=== PATIENT | female | born 1955 | race Caucasian/White ===

== ENCOUNTER 2016-12-10 09:13 | Day surgery (SDC) | payer BC ==
--- NOTE | ~2016-12-10 | EGD ---
EGD REPORT [facility] [address] [address] NAME: MAKAYLA MONTENEGRO : 57 STATUS : REG [facility]#: [id number] AGE: 61 ADM/REG DATE : 12/10/16 MR#: [id number] REPORT SERV DATE: 12/10/16 DICTATED BY: SUNDAY VELÁSQUEZ DATE: 12/10/16 REPORT STATUS : Draft [facility]: [facility] DATE: 12/10/16 Endoscopy Center Patient Name: Makayla Montenegro Date of : 1955 Attending MD: SUNDAY VELÁSQUEZ MD Procedure Date No Time: 12/10/2016 Procedure: Colonoscopy Indications: Colon cancer screening in patient at increased risk: Family history of colon polyps Referring MD: LEILA WOODWARD MD Medicines: as per anesthesia Complications: No immediate complications. Procedure: Pre-Anesthesia Assessment: - ASA Grade Assessment: II - A patient with mild systemic disease. After I obtained informed consent, the scope was passed under direct vision. Throughout the procedure, the patient's blood pressure, pulse, and oxygen saturations were monitored continuously. The [facility] [id number] was introduced through the anus and advanced to the cecum, identified by appendiceal orifice and ileocecal valve. The colonoscopy was performed without difficulty. The patient tolerated the procedure. The quality of the bowel preparation was adequate to identify polyps. Findings: The perianal and digital rectal examinations were normal. Multiple small and large-mouthed diverticula were found in the sigmoid colon, in the descending colon, in the transverse colon and in the ascending colon. Internal hemorrhoids were found during endoscopy and were mild. Impression: - Diverticulosis in the sigmoid colon, in the descending colon, in the transverse colon and in the ascending colon. - Internal hemorrhoids. Recommendation: - Repeat colonoscopy in 5 years for surveillance. Procedure Code(s): --- Professional --- 02283, Colonoscopy, flexible, proximal to splenic flexure; diagnostic, with or without collection of specimen(s) by brushing or washing, with or without colon decompression (separate procedure) EGD REPORT [facility] [address] [place] [address] NAME: MAKAYLA MONTENEGRO : 57 STATUS : REG [facility] PAT#: [id number] AGE: 61 ADM/REG DATE : 12/10/16 MR#: [id number] REPORT SERV DATE: 12/10/16 DICTATED BY: SUNDAY VELÁSQUEZ. DATE: 12/10/16 REPORT STATUS : Draft TRANSCRIBED BY: [employer] DATE: 12/10/16 Diagnosis Code(s): --- Professional --- K64.8, Other hemorrhoids K57.30, Diverticulosis of large intestine without perforation or abscess without bleeding Z12.11, Encounter for screening for malignant neoplasm of colon Z83.71, Family history of colonic polyps CPT copyright 2013 [employer]. All rights reserved. The codes documented in this report are preliminary and upon sales solutions associate review may be revised to meet current compliance requirements. SUNDAY VELÁSQUEZ MD 12/10/2016 10:32 AM This report has been signed electronically. Number of Addenda: 0 Note Initiated On: 12/10/2016 9:57 AM Scope Withdrawal Time 0 hours 6 minutes 54 seconds [address] [place] [address]
[~2016-12-10 09:13] MED LIST: DIOV160 PO; IBU-200200 MG PO; MAGNESIUM PO; MAXIMUM D3 PO; MULTIVIT/MIN PO
== END 2016-12-10 23:59 | disposition home or self-care (01) ==
LOC: DMU 09:13
PROVIDERS: Internal Medicine Gastroenterology
PROC: 0DJD8ZZ Inspection of Lower Intestinal Tract, Via Natural or Artificial Opening Endoscopic (ICD-10-PCS; principal; 2016-12-10 10:30)
DX: Z12.11 Encounter for screening for malignant neoplasm of colon (principal); K64.8 Other hemorrhoids; K64.9 Unspecified hemorrhoids; K57.30 Diverticulosis of large intestine without perforation or abscess without bleeding; M19.90 Unspecified osteoarthritis, unspecified site; Z83.71 Family history of colonic polyps; I10 Essential (primary) hypertension; Z88.8 Allergy status to other drugs, medicaments and biological substances; Z88.2 Allergy status to sulfonamides; Z79.899 Other long term (current) drug therapy; Z90.710 Acquired absence of both cervix and uterus; Z90.89 Acquired absence of other organs; Z98.890 Other specified postprocedural states